=== PATIENT | female | born 1940 | race American Indian/Alaskan Native ===

== ENCOUNTER 2016-10-25 18:06 | Inpatient (IN) | payer MEDICARE, OTHER ==
--- NOTE | 2016-10-25 18:22 | ED PDOC ---
HPI: SOB/CHF/COPD Time Seen by Provider: 10/25/16 18:22 Chief Complaint (Nursing): Respiratory Distress Chief Complaint (Provider): SOB History Per: Patient, Family Additional Complaint(s): 76-year-old female presents to emergency department with cough, shortness of breath and swelling of legs for one week. Patient was seen today by primary doctor and was advised to come to ED for further evaluation. Family members at bedside states the patient has been complaining of shortness of breath and leg swelling for a few days now. No associated fever or chills. Prior to a few days ago patient had mild chronic swelling to lower legs but it has been much worse over the past few days. No recent travel, no known sick contacts. Past Medical History Reviewed: Historical Data, Nursing Documentation, Vital Signs Vital Signs: Last Vital Signs Temp 98.4 F 10/25/16 18:10 Pulse 64 10/25/16 18:10 Resp 12 10/25/16 18:43 BP 138/71 10/25/16 18:10 Pulse Ox 95 10/25/16 18:56 - Medical History PMH: Alzheimer's Disease, CAD, Dementia, HTN, Hypercholesterolemia, Hypothyroidism - Surgical History Other surgeries: repair of brain aneurysm - Family History Family History: States: No Known Family Hx - Living Arrangements Living Arrangements: With Family - Social History Current smoker - smoking cessation education provided: No Alcohol: None Drugs: Denies - Home Medications Home Medications: Ambulatory Orders Medication Instructions Recorded Atenolol [Tenormin] 50 mg PO DAILY 03/18/14 Atorvastatin Calcium [Lipitor] 10 mg PO HS 03/18/14 Donepezil Hydrochloride [Aricept] 5 mg PO HS 03/18/14 Aspirin [Aspirin Chewable] 81 mg PO DAILY 10/25/16 Cholecalciferol (Vitamin D3) 1,000 units PO DAILY 10/25/16 [Vitamin D3] Cyanocobalamin [Vitamin B12] 1 tab PO DAILY 10/25/16 Levothyroxine Sodium [Synthroid] 100 mcg PO DAILY 10/25/16 QUEtiapine [SEROquel] 50 mg PO HS 10/25/16 amLODIPine [Norvasc] 5 mg PO DAILY 10/25/16 traZODone [Desyrel] 200 mg PO HS 10/25/16 - Allergies Allergies/Adverse Reactions: Allergies Allergy/AdvReac Type Severity Reaction Status Date / Time No Known Allergies Allergy Verified 11/19/14 07:32 Wells Criteria for PE - Wells Criteria for Pulmonary Embolism Clinical Signs and Symptoms of DVT: Yes P.E is #1 Diagnosis, or Equally Likely: Yes Heart Rate >100: No Immobilization at least 3 days;Surgery previous 4 weeks: No Previous, objectively diagnosed PE or DVT: No Hemoptysis: No Malignancy w/treatment within 6 months, or palliative: No Total Score: 4 Review of Systems ROS Statement: Except As Marked, All Systems Reviewed And Found Negative Constitutional: Negative for: Fever, Chills Cardiovascular: Positive for: Chest Pain, Edema. Negative for: Palpitations, Light Headedness Respiratory: Positive for: Cough, Shortness of Breath, SOB with Exertion Gastrointestinal: Negative for: Nausea, Vomiting, Abdominal Pain Genitourinary Female: Positive for: Frequency. Negative for: Dysuria Neurological: Negative for: Headache, Dizziness Physical Exam - Reviewed Nursing Documentation Reviewed: Yes Vital Signs Reviewed: Yes - Physical Exam Appears: Positive for: Well, Non-toxic, No Acute Distress Head Exam: Positive for: ATRAUMATIC, NORMAL INSPECTION Skin: Negative for: Rash Eye Exam: Positive for: Normal appearance, EOMI, PERRL Neck: Positive for: Normal Cardiovascular/Chest: Positive for: Regular Rate, Rhythm Respiratory: Positive for: Rales, Rhonchi, Respiratory Distress (mild). Negative for: Wheezing Gastrointestinal/Abdominal: Positive for: Soft. Negative for: Tenderness, Distended, Guarding, Rebound Extremity: Positive for: Pedal Edema (2 + pitting edema to both legs up to knees ) Neurologic/Psych: Positive for: Alert, Oriented - ECG O2 Sat by Pulse Oximetry: 95 Pulse Ox Interpretation: Normal Medical Decision Making Medical Decision Makin76 year old female with shortness of breath and edema Plan: EKG CXR CBC CMP Trop BNP D-dimer Duplex bilateral lower extremities Disposition - Clinical Impression Clinical Impression: Shortness of breath - Patient ED Disposition Is Patient to be Admitted: Transfer of Care - Disposition Disposition: Transfer of Care Disposition Time: 20:00 Condition: FAIR Forms: [employer] (Setswana) Patient Signed Over To: Zeinab Roberts Handoff Comments: Signed out pending diagnostic testing results and final dispo
[2016-10-25 20:32] LABS: BASO # 0.1 K/uL (0.0-0.2); BASO % 0.9 % (0.0-2.0); EOS # 0.2 K/uL (0.0-0.7); EOS % 3.7 % (0.0-4.0); HEMOGLOBIN 11.1 g/dL (12.0-16.0); LYMPH # 1.2 K/uL (1.0-4.3); LYMPH % 20.5 % (20.0-40.0); MEAN CELL VOLUME 82.6 fl (81.0-99.0); MEAN CORPUSCULAR HEMOGLOBIN 25.8 pg (27.0-31.0); MEAN CORPUSCULAR HGB CONC 31.2 g/dL (33.0-37.0); MONO # 0.7 K/uL (0.0-0.8); MONO % 11.6 % (0.0-10.0); NEUT # 3.8 K/uL (1.8-7.0); NEUT % 63.3 % (50.0-75.0); NRBC % 0.2 % (0.0-0.0); RBC 4.32 Mil/uL (3.80-5.20); RED CELL DISTRIBUTION WIDTH 15.8 % (11.5-14.5)
[2016-10-25 20:38] LABS: ALB/GLOB RATIO 1.1 (1.0-2.1); ALBUMIN 3.7 g/dL (3.5-5.0); ALT/SGPT 37 U/L (9-52); AST/SGOT 22 U/L (14-36); BLOOD UREA NITROGEN 28 mg/dl (7-17); CALCIUM 9.3 mg/dL (8.4-10.2); GFR AFRICAN-AMERICAN 31; GFR NON-AFRICAN AMERICAN 26
--- NOTE | 2016-10-25 20:46 | US ---
EXAM: US Duplex Bilateral Lower Extremity Veins CLINICAL HISTORY: 76 years old, female; Pain and signs and symptoms; Swelling of limb; Lower extremity, bilateral; Leg, lower; Additional info: Swelling and pain to both legs TECHNIQUE: Real-time ultrasound scan of the veins of the bilateral lower extremities with color Doppler flow, spectral waveform analysis and compression. EXAM DATE/TIME: 10/25/2016 6:52 PM COMPARISON: No relevant prior studies available. FINDINGS: Normal-appearing compressibility, flow and augmentation response are seen within the common femoral, femoral and popliteal veins bilaterally. There is normal flow and augmentation response in the posterior tibial veins bilaterally. IMPRESSION: No evidence of deep venous thrombosis in either leg.
[2016-10-25 20:48] LABS: B-TYPE NATRIURETIC PEPTIDE 376 pg/ml (0-900)
[2016-10-25] MEDS ORDERED: Albuterol-Ipratrop 3 mg / 0.5 (3 ml) UD ONE (21:33)
[2016-10-25] MEDS ORDERED: Albuterol-Ipratrop 3 mg / 0.5 (3 ml) UD INH STA (21:34)
--- NOTE | 2016-10-25 21:42 | ED PDOC ---
- Laboratory Results Result Diagrams: 10/25/16 20:06 10/25/16 20:06 - ECG O2 Sat by Pulse Oximetry: 95 Medical Decision Making Medical Decision Making: Elevated D-dimer. Pt with elevated BUN and creatinine. V/Q scan ordered for tomorrow. Discussed admission with Michele Valdez NP. Disposition - Clinical Impression Clinical Impression: Shortness of breath, Pneumonia - POA Present On Arrival: None - Disposition Disposition: Hospitalized as Observation Patient Disposition Time: 22:04 Condition: STABLE Wells Criteria for PE - Wells Criteria for Pulmonary Embolism Clinical Signs and Symptoms of DVT: No P.E is #1 Diagnosis, or Equally Likely: No Heart Rate >100: No Immobilization at least 3 days;Surgery previous 4 weeks: No Previous, objectively diagnosed PE or DVT: No Hemoptysis: No Malignancy w/treatment within 6 months, or palliative: No Total Score: 0 Curb-65 Severity Score - CURB-65 Severity Score Confusion: No Bun >19mg/dl (>7mmol/L): Yes Respiratory Rate greater than/equal to 30: No Systolic BP <90 or Diastolic BP less than/equal 60mmHg: No Age >64: Yes Curb-65 Score: 2 Percentage 30-day mortality: 6.8%
[2016-10-25] MEDS ORDERED: cefTRIAXone (Rocephin) 1 gm Inj ONE (22:04)
[2016-10-25] MEDS ORDERED: Azithromycin 500 MG IV IVPB ONE (23:26)
[2016-10-26 07:03] LABS: HEMOGLOBIN 10.8 g/dL (12.0-16.0); MEAN CELL VOLUME 82.4 fl (81.0-99.0); MEAN CORPUSCULAR HEMOGLOBIN 25.3 pg (27.0-31.0); MEAN CORPUSCULAR HGB CONC 30.6 g/dL (33.0-37.0); RBC 4.28 Mil/uL (3.80-5.20); RED CELL DISTRIBUTION WIDTH 15.6 % (11.5-14.5); WHITE BLOOD COUNT 5.6 K/uL (4.8-10.8)
[2016-10-26 07:37] LABS: ALB/GLOB RATIO 1.1 (1.0-2.1); ALBUMIN 3.3 g/dL (3.5-5.0); CALCIUM 8.8 mg/dL (8.4-10.2)
[2016-10-26] MEDS ORDERED: Potassium Chloride 20 mEq ER Tab PO ONE (08:22)
--- NOTE | 2016-10-26 08:32 | CP.PCM.HP ---
History of Present Illness - History of Present Illness History of Present Illness: pt admitted for pna and positive ddimer. pt had dyspnea at [facility] [place] office which prompted er visit. bun/cr elevated which dis allowed ct chest. no complaints/dyspnea at present. scattered rhonchi/wheezing. pt is confused w/ h/o dementia bw and imaging noted Present on Admission - Present on Admission Any Indicators Present on Admission: No Review of Systems - Respiratory Respiratory: As Per HPI, Cough, Dyspnea, Wheezing, Chest Congestion Past Patient History - Infectious Disease Hx of Infectious Diseases: None - Tetanus Immunizations Tetanus Immunization: Unknown - Past Medical History & Family History Past Medical History?: Yes - Past Social History Smoking Status: Never Smoked - CARDIAC Hx Cardiac Disorders: Yes Hx Hypertension: Yes - PULMONARY Hx Respiratory Disorders: No - NEUROLOGICAL Hx Neurological Disorder: Yes Hx Dementia: Yes - HEENT Hx HEENT Problems: No - RENAL Hx Chronic Kidney Disease: No - ENDOCRINE/METABOLIC Hx Endocrine Disorders: Yes Hx Hypothyroidism: Yes - HEMATOLOGICAL/ONCOLOGICAL Hx Blood Disorders: Yes Hx Cancer: Yes (Breast Cancer) - INTEGUMENTARY Hx Dermatological Problems: No - MUSCULOSKELETAL/RHEUMATOLOGICAL Hx Musculoskeletal Disorders: No Hx Falls: No - GASTROINTESTINAL Hx Gastrointestinal Disorders: No - GENITOURINARY/GYNECOLOGICAL Hx Genitourinary Disorders: No - PSYCHIATRIC Hx Psychophysiologic Disorder: No Hx Substance Use: No - SURGICAL HISTORY Hx Surgeries: Yes Hx Breast Biopsy: Yes Hx Mastectomy: Yes (Lumpectomy; 2012 two surgeries L breast) Other/Comment: 1992 Brain aneurysm surgery. 2012 Left breast Ca= Surgery x2 - ANESTHESIA Hx Anesthesia: Yes Hx Anesthesia Reactions: No Hx Malignant Hyperthermia: No Meds Allergies/Adverse Reactions: Allergies Allergy/AdvReac Type Severity Reaction Status Date / Time No Known Allergies Allergy Verified 11/19/14 07:32 Physical Exam - Constitutional Appears: Well, Non-toxic, No Acute Distress - Head Exam Head Exam: ATRAUMATIC, NORMAL INSPECTION, NORMOCEPHALIC - Eye Exam Eye Exam: EOMI, Normal appearance, PERRL Pupil Exam: NORMAL ACCOMODATION, PERRL - ENT Exam ENT Exam: Mucous Membranes Moist, Normal Exam - Neck Exam Neck exam: Positive for: Normal Inspection - Respiratory Exam Respiratory Exam: Rhonchi, Wheezes, NORMAL BREATHING PATTERN - Cardiovascular Exam Cardiovascular Exam: REGULAR RHYTHM, RRR, +S1, +S2 - GI/Abdominal Exam GI & Abdominal Exam: Normal Bowel Sounds, Soft. absent: Tenderness - Extremities Exam Extremities exam: Positive for: normal inspection - Back Exam Back exam: NORMAL INSPECTION - Neurological Exam Neurological exam: Alert, CN II-XII Intact, Normal Gait, Oriented x3, Reflexes Normal - Psychiatric Exam Psychiatric exam: Normal Affect, Normal Mood - Skin Skin Exam: Dry, Intact, Normal Color, Warm Results - Vital Signs Recent Vital Signs: Last Vital Signs Temp 98.3 F 10/26/16 08:13 Pulse 59 L 10/26/16 08:13 Resp 18 10/26/16 08:13 BP 145/60 10/26/16 08:13 Pulse Ox 97 10/26/16 08:13 - Labs Result Diagrams: 10/26/16 06:30 10/26/16 06:30 Labs: Laboratory Results - last 24 hr 10/26/16 10/26/16 06:30 06:30 WBC 5.6 RBC 4.28 Hgb 10.8 L Hct 35.2 MCV 82.4 MCH 25.3 L MCHC 30.6 L RDW 15.6 H Plt Count 162 Sodium 144 Potassium 3.2 L Chloride 108 H Carbon Dioxide 27 Anion Gap 12 BUN 28 H Creatinine 1.8 H Est GFR ( Amer) 33 Est GFR (Non-Af Amer) 28 Random Glucose 90 Calcium 8.8 Total Bilirubin 0.3 AST 19 ALT 30 Alkaline Phosphatase 66 Total Protein 6.3 Albumin 3.3 L Globulin 3.0 Albumin/Globulin Ratio 1.1 Assessment & Plan (1) Positive D dimer Assessment and Plan: vq scan today lovenox ppx dose for now Status: Acute (2) DVT prophylaxis Assessment and Plan: scd and aehose lovenox Status: Acute (3) Pneumonia Assessment and Plan: rocephin/zithromax duoneb Status: Acute (4) Acute kidney injury Assessment and Plan: ivf monitor Status: Acute (5) Dehydration Assessment and Plan: ivf monitor bw Status: Acute Decision To Admit - Pt Status Changed To: Hospital Disposition Of: Inpatient - Admit Certification Admit to Inpatient:: After my assessment, the patient will require hospitalization for at least two midnights. This is because of the severity of symptoms shown, intensity of services needed, and/or the medical risk in this patient being treated as an outpatient. - . Bed Request Type: Telemetry Admitting Physician: Gonzales Garcia
--- NOTE | 2016-10-26 08:49 | RAD ---
HISTORY: shortness of breath, cough COMPARISON: Comparison is made to 11/19/2014 TECHNIQUE: Chest PA and lateral FINDINGS: LUNGS: Small opacity seen at the medial aspect of the right lower lung may represent pneumonia. PLEURA: No significant pleural effusion identified. No pneumothorax apparent. CARDIOVASCULAR: Normal. OSSEOUS STRUCTURES: Diffuse osteopenia. Mild compression deformity seen at the lower thoracic spine. VISUALIZED UPPER ABDOMEN: Normal. OTHER FINDINGS: None. IMPRESSION: Small opacity at the medial aspect of the right lower lung may represent pneumonia.
[2016-10-26] MEDS ORDERED: Azithromycin 500 MG in Sodium Chloride 0.9% 250 ML IVPB SCH (09:00)
[2016-10-26] MEDS ORDERED: ATENOLOL 100 MG TAB PO SCH (09:00)
[2016-10-26] MEDS ORDERED: CYANOCOBALAMIN 500 MCG TAB PO SCH (09:00)
[2016-10-26] MEDS: Enoxaparin 40 mg Syringe SC SCH (09:57)
--- NOTE | 2016-10-26 10:19 | CARD ---
APPROVED REPORT EKG Measurement Heart [id number] <Conclusion> Normal sinus rhythm Possible septal infarct, age undetermined Abnormal ECG
[2016-10-26] MEDS: Promethazine DM 6.25 mg-15 mg/5 ml Syrup PO PRN ×2 (11:11→19:59)
[2016-10-26] MEDS: Levothyroxine 100 MCG TAB PO SCH (11:12)
[2016-10-26] MEDS: Albuterol-Ipratrop 3 mg / 0.5 (3 ml) UD INH PRN ×2 (11:24→16:39)
--- NOTE | 2016-10-26 13:37 | NM ---
COMPARISON: October 25, 2016. Two-view chest October 25, 2016. Duplex venous sonography lower extremity bilateral. TECHNIQUE: 43.6 mCi technetium 99-m DTPA aerosol. 5.34 mCI technetium 99-m MAA administered intravenously. FINDINGS: VENTILATION COMPONENT: Mildly heterogeneous. Retention of radionuclide in the central tracheobronchial tree. PERFUSION COMPONENT: Heterogeneous distribution of radionuclide. No geographic, segmental, lobar abnormalities apparent on the present examination. IMPRESSION: Low probability ventilation perfusion scan for pulmonary embolism.
[2016-10-26] MEDS: Azithromycin 500 MG in Sodium Chloride 0.9% 250 ML IVPB SCH (22:13)
--- NOTE | 2016-10-27 08:10 | CP.PCM.PN ---
Subjective - Date & Time of Evaluation Date of Evaluation: 10/27/16 Time of Evaluation: 08:08 - Subjective Subjective: pt doing well in bed. no f/c, n/v/d. per rn had incr confusion after daughter left yesterday. vq negative for pe. spo2 93-94 off o2. pt on 1:1 for incr confusion. Objective - Vital Signs/Intake and Output Vital Signs (last 24 hours): Temp Pulse Resp BP Pulse Ox 98.2 F 72 20 145/69 93 L 10/27/16 05:12 10/27/16 05:12 10/27/16 05:12 10/27/16 05:12 10/27/16 05:12 - Medications Medications: Current Medications Albuterol/Ipratropium (Duoneb 3 Mg/0.5 Mg (3 Ml) Ud) 3 ml INH RQ4 PRN PRN Reason: Shortness of Breath Last Admin: 10/26/16 16:39 Dose: 3 ml Amlodipine Besylate (Norvasc) 5 mg PO DAILY [facility] Last Admin: 10/26/16 09:56 Dose: 5 mg Aspirin (Aspirin Chewable) 81 mg PO DAILY [facility] Last Admin: 10/26/16 09:56 Dose: 81 mg Atenolol (Tenormin) 50 mg PO DAILY [facility] Atorvastatin Calcium (Lipitor) 10 mg PO HS [facility] Last Admin: 10/26/16 22:16 Dose: 10 mg Cholecalciferol (Vitamin D) 1,000 iu PO DAILY [facility] Last Admin: 10/26/16 11:12 Dose: 1,000 iu Cyanocobalamin (Vitamin B12 1000 Mcg Tab) 1,000 mcg PO DAILY [facility] Donepezil HCl (Aricept) 5 mg PO HS [facility] Last Admin: 10/26/16 22:11 Dose: 5 mg Enoxaparin Sodium (Lovenox) 40 mg SC DAILY [facility] PRN Reason: Protocol Last Admin: 10/26/16 09:57 Dose: 40 mg Ceftriaxone Sodium 1 gm/ (Sodium Chloride) 100 mls @ 100 mls/hr IVPB DAILY@ 2200 [facility] Last Admin: 10/26/16 22:12 Dose: 100 mls/hr Azithromycin 500 mg/ Sodium (Chloride) 250 mls @ 250 mls/hr IVPB DAILY@2200 [facility] Last Admin: 10/26/16 22:13 Dose: 250 mls/hr Levothyroxine Sodium (Synthroid) 100 mcg PO 0900 [facility] Last Admin: 10/26/16 11:12 Dose: 100 mcg Promethazine HCl/Dextromethorphan (Phenergan Dm Syrup) 5 ml PO Q6 PRN PRN Reason: Cough Last Admin: 10/26/16 19:59 Dose: 5 ml Quetiapine Fumarate (Seroquel) 50 mg PO [facility] Last Admin: 10/26/16 22:13 Dose: 50 mg Trazodone HCl (Desyrel) 200 mg PO [facility] Last Admin: 10/26/16 22:11 Dose: 200 mg - Labs Labs: 10/26/16 06:30 10/26/16 06:30 - Constitutional Appears: Well, Non-toxic, No Acute Distress - Head Exam Head Exam: ATRAUMATIC, NORMAL INSPECTION, NORMOCEPHALIC - Eye Exam Eye Exam: EOMI, Normal appearance, PERRL Pupil Exam: NORMAL ACCOMODATION, PERRL - ENT Exam ENT Exam: Mucous Membranes Moist, Normal Exam - Neck Exam Neck Exam: Full ROM, Normal Inspection. absent: Lymphadenopathy - Respiratory Exam Respiratory Exam: Rhonchi, Wheezes, NORMAL BREATHING PATTERN - Cardiovascular Exam Cardiovascular Exam: REGULAR RHYTHM, RRR, +S1, +S2. absent: Murmur - GI/Abdominal Exam GI & Abdominal Exam: Soft, Normal Bowel Sounds. absent: Tenderness - Extremities Exam Extremities Exam: Full ROM, Normal Capillary Refill, Normal Inspection. absent : Joint Swelling, Pedal Edema - Back Exam Back Exam: NORMAL INSPECTION - Neurological Exam Neurological Exam: Alert, Awake, CN II-XII Intact, Normal Gait, Oriented x3 - Psychiatric Exam Psychiatric exam: Normal Affect, Normal Mood - Skin Skin Exam: Dry, Intact, Normal Color, Warm Assessment and Plan (1) Positive D dimer Status: Acute (2) DVT prophylaxis Status: Acute (3) Pneumonia Status: Acute (4) Acute kidney injury Status: Acute (5) Dehydration Status: Acute - Assessment and Plan (Free Text) Assessment: (1) Positive D dimer Assessment and Plan: vq scan today-negative lovenox cont ppx dose Status: Acute (2) DVT prophylaxis Assessment and Plan: scd and aehose lovenox Status: Acute (3) Pneumonia Assessment and Plan: rocephin/zithromax duoneb phenergen o2 prn Status: Acute (4) Acute kidney injury Assessment and Plan: ivf monitor Status: Acute (5) Dehydration Assessment and Plan: ivf monitor bw Status: Acute 6-confusion w/ h/o dementia. cont meds, 1:1 safety pending am labs
[2016-10-27 08:37] LABS: BASO % 0.8 % (0.0-2.0); EOS # 0.2 K/uL (0.0-0.7); EOS % 3.7 % (0.0-4.0); HEMOGLOBIN 10.1 g/dL (12.0-16.0); LYMPH # 1.3 K/uL (1.0-4.3); LYMPH % 27.7 % (20.0-40.0); MEAN CELL VOLUME 81.8 fl (81.0-99.0); MEAN CORPUSCULAR HEMOGLOBIN 25.7 pg (27.0-31.0); MEAN CORPUSCULAR HGB CONC 31.4 g/dL (33.0-37.0); MEAN PLATELET VOLUME 8.1 fl (7.2-11.7); MONO # 0.5 K/uL (0.0-0.8); MONO % 10.6 % (0.0-10.0); NEUT # 2.6 K/uL (1.8-7.0); NEUT % 57.2 % (50.0-75.0); NRBC % 0.1 % (0.0-0.0); RBC 3.91 Mil/uL (3.80-5.20); RED CELL DISTRIBUTION WIDTH 15.8 % (11.5-14.5); WHITE BLOOD COUNT 4.5 K/uL (4.8-10.8)
[2016-10-27 08:52] LABS: ALBUMIN 3.1 g/dL (3.5-5.0); CALCIUM 8.5 mg/dL (8.4-10.2)
[2016-10-27] MEDS: Enoxaparin 40 mg Syringe SC SCH (09:51)
[2016-10-27] MEDS: Levothyroxine 100 MCG TAB PO SCH (09:53)
[2016-10-27] MEDS: Promethazine DM 6.25 mg-15 mg/5 ml Syrup PO PRN ×2 (10:06→21:35)
[2016-10-27] MEDS: Azithromycin 500 MG in Sodium Chloride 0.9% 250 ML IVPB SCH (22:39)
[2016-10-28] MEDS: Azithromycin 500 MG in Sodium Chloride 0.9% 250 ML IVPB SCH (01:35)
[2016-10-28 07:57] LABS: ALBUMIN 3.2 g/dL (3.5-5.0)
--- NOTE | 2016-10-28 09:17 | CP.PCM.PN ---
Subjective - Date & Time of Evaluation Date of Evaluation: 10/28/16 Time of Evaluation: : - Subjective Subjective: pt in bed w/ 1:1 for safety. no distress/complaints. no f/c, n/v/d. bw noted. bun/cr trending down. k normalized. still w/ wheezing, good air entry. did not get duoneb yet this am. Objective - Vital Signs/Intake and Output Vital Signs (last 24 hours): Temp Pulse Resp BP Pulse Ox 98.8 F 63 18 105/74 97 10/28/16 08:18 10/28/16 08:18 10/28/16 08:18 10/28/16 08:18 10/28/16 08:18 - Medications Medications: Current Medications Albuterol/Ipratropium (Duoneb 3 Mg/0.5 Mg (3 Ml) Ud) 3 ml INH RQ4 PRN PRN Reason: Shortness of Breath Last Admin: 10/26/16 16:39 Dose: 3 ml Amlodipine Besylate (Norvasc) 5 mg PO DAILY [facility] Last Admin: 10/27/16 09:52 Dose: 5 mg Aspirin (Aspirin Chewable) 81 mg PO DAILY [facility] Last Admin: 10/27/16 09:51 Dose: 81 mg Atenolol (Tenormin) 50 mg PO DAILY [facility] Last Admin: 10/27/16 09:53 Dose: 50 mg Atorvastatin Calcium (Lipitor) 10 mg PO HS [facility] Last Admin: 10/27/16 21:14 Dose: 10 mg Azithromycin (Zithromax) 250 mg PO DAILY [facility] Stop: 10/31/16 09:01 Cholecalciferol (Vitamin D) 1,000 iu PO DAILY [facility] Last Admin: 10/27/16 09:53 Dose: 1,000 iu Cyanocobalamin (Vitamin B12 1000 Mcg Tab) 1,000 mcg PO DAILY [facility] Last Admin: 10/27/16 09:54 Dose: 1,000 mcg Donepezil HCl (Aricept) 5 mg PO HS [facility] Last Admin: 10/27/16 21:14 Dose: 5 mg Enoxaparin Sodium (Lovenox) 40 mg SC DAILY [facility] PRN Reason: Protocol Last Admin: 10/27/16 09:51 Dose: 40 mg Ceftriaxone Sodium 1 gm/ (Sodium Chloride) 100 mls @ 100 mls/hr IVPB DAILY@ 2200 [facility] Last Admin: 10/27/16 21:14 Dose: 100 mls/hr Levothyroxine Sodium (Synthroid) 100 mcg PO 0900 [facility] Last Admin: 10/27/16 09:53 Dose: 100 mcg Promethazine HCl/Dextromethorphan (Phenergan Dm Syrup) 5 ml PO Q6 PRN PRN Reason: Cough Last Admin: 10/27/16 21:35 Dose: 5 ml Quetiapine Fumarate (Seroquel) 50 mg PO [facility] Last Admin: 10/27/16 21:14 Dose: 50 mg Trazodone HCl (Desyrel) 200 mg PO [facility] Last Admin: 10/27/16 21:13 Dose: 200 mg - Labs Labs: 10/27/16 08:00 10/28/16 05:30 - Constitutional Appears: Well, Non-toxic, No Acute Distress - Head Exam Head Exam: ATRAUMATIC, NORMAL INSPECTION, NORMOCEPHALIC - Eye Exam Eye Exam: EOMI, Normal appearance, PERRL Pupil Exam: NORMAL ACCOMODATION, PERRL - ENT Exam ENT Exam: Mucous Membranes Moist, Normal Exam - Neck Exam Neck Exam: Full ROM, Normal Inspection. absent: Lymphadenopathy - Respiratory Exam Respiratory Exam: Wheezes, NORMAL BREATHING PATTERN Additional comments: good air entry - Cardiovascular Exam Cardiovascular Exam: REGULAR RHYTHM, RRR, +S1, +S2. absent: Murmur - GI/Abdominal Exam GI & Abdominal Exam: Soft, Normal Bowel Sounds. absent: Tenderness - Extremities Exam Extremities Exam: Full ROM, Normal Capillary Refill, Normal Inspection. absent : Joint Swelling, Pedal Edema - Back Exam Back Exam: NORMAL INSPECTION - Neurological Exam Neurological Exam: Alert, Awake, CN II-XII Intact, Normal Gait - Psychiatric Exam Psychiatric exam: Normal Affect, Normal Mood - Skin Skin Exam: Dry, Intact, Normal Color, Warm Assessment and Plan (1) Positive D dimer Status: Acute (2) DVT prophylaxis Status: Acute (3) Pneumonia Status: Acute (4) Acute kidney injury Status: Acute (5) Dehydration Status: Acute - Assessment and Plan (Free Text) Assessment: (1) Positive D dimer Assessment and Plan: vq scan today-negative lovenox cont ppx dose Status: Acute (2) DVT prophylaxis Assessment and Plan: scd and aehose lovenox Status: Acute (3) Pneumonia Assessment and Plan: rocephin-d/c for lack of iv access, started augmentin/zithromax duoneb phenergen o2 prn Status: Acute (4) Acute kidney injury Assessment and Plan: ivf monitor Status: Acute (5) Dehydration Assessment and Plan: ivf monitor bw Status: Acute 6-confusion w/ h/o dementia. cont meds, 1:1 safety ?? dc today
[2016-10-28] MEDS: Enoxaparin 40 mg Syringe SC SCH (09:34)
[2016-10-28] MEDS: Promethazine DM 6.25 mg-15 mg/5 ml Syrup PO PRN (09:36)
[2016-10-28] MEDS: Levothyroxine 100 MCG TAB PO SCH (09:37)
[2016-10-28 09:54] LABS: BASO % 0.5 % (0.0-2.0); EOS # 0.2 K/uL (0.0-0.7); EOS % 4.4 % (0.0-4.0); HEMOGLOBIN 10.6 g/dL (12.0-16.0); LYMPH # 1.3 K/uL (1.0-4.3); LYMPH % 24.6 % (20.0-40.0); MEAN CELL VOLUME 81.6 fl (81.0-99.0); MEAN CORPUSCULAR HEMOGLOBIN 25.5 pg (27.0-31.0); MEAN CORPUSCULAR HGB CONC 31.3 g/dL (33.0-37.0); MEAN PLATELET VOLUME 8.6 fl (7.2-11.7); MONO # 0.5 K/uL (0.0-0.8); MONO % 8.7 % (0.0-10.0); NEUT # 3.3 K/uL (1.8-7.0); NEUT % 61.8 % (50.0-75.0); NRBC % 0.1 % (0.0-0.0); RBC 4.15 Mil/uL (3.80-5.20); RED CELL DISTRIBUTION WIDTH 15.6 % (11.5-14.5); WHITE BLOOD COUNT 5.4 K/uL (4.8-10.8)
[2016-10-28] MEDS ORDERED: Albuterol-Ipratrop 3 mg / 0.5 (3 ml) UD INH STA (09:59)
[2016-10-28] MEDS: Amoxicillin-Clav 875-125 mg Tab PO SCH ×2 (11:55→22:17)
[2016-10-29 08:03] VITALS: BP 129/68; PULSE 69; RESP 18; TEMP 97.8; O2SAT 96
--- NOTE | 2016-10-29 08:36 | PQF GENQUE ---
This form is a permanent part of the medical record 10/29/16 Michele Valdez APN, Please specify the Type of Pneumonia. Patient with a history of Dementia presents to PMD office with dyspnea and sent to the ER. Noted rhonchi and wheezing with confusion. CXR: Small opacity at the medial aspect of the RLL may represent Pneumonia. Treated with IVAB. Clarification of your documentation is requested to better reflect the severity of illness and intensity of treatment of your patient. PHYSICIAN'S RESPONSE 1. Please specify type of pneumonia in the progress notes: [] Aspiration pneumonia [x] Bacterial (specify organism) unkn, CAP [] Bronchopneumonia (specify organism) [] Interstitial pneumonia [] Organizing pneumonia/BOOP [] Pneumonia with influenza, kellie flu, or H1N1 flu [] RSV pneumonia [] Tuberculosis, pulmonary [] Viral pneumonia [] Other pneumonia (specify organism or type) [] Clinically unable to determine [] Unknown Note: Probable and suspected conditions can be coded as if they exist if still documented at the time of discharge. Please specify the organism causing the pneumonia CAP Note: CAP, HAP, and HCAP indicate where the pneumonia was acquired, not a specific type. Based on your medical judgment of the clinical indicators outlined above please clarify the following: [] Practitioner response [] If unable to determine, please check the box, sign and date. Present On Admission (POA) Indicator: [] Present at the time of admission [] Not present at the time of admission [] Clinically Undetermined In responding to this query, please exercise your independent professional judgment. The fact that a question is asked does not imply that any particular answer is desired or expected. Thank you for your clarification on this documentation. If you have any questions please call:[phone] Medical Records Dept * Thank you, Stephany Box RN CDMP MTDD
[2016-10-29] MEDS: Amoxicillin-Clav 875-125 mg Tab PO SCH (08:53)
[2016-10-29] MEDS: Levothyroxine 100 MCG TAB PO SCH (08:53)
--- NOTE | 2016-10-29 09:06 | CP.PCM.DIS ---
Provider - Provider Date of Admission: 10/25/16 22:56 Attending physician: Gonzales Garcia MD Time Spent in preparation of Discharge (in minutes): 15 Diagnosis - Discharge Diagnosis (1) Positive D dimer Status: Acute (2) DVT prophylaxis Status: Acute (3) Pneumonia Status: Acute (4) Acute kidney injury Status: Acute (5) Dehydration Status: Acute Hospital Course - Lab Results Lab Results: Most Recent Lab Values WBC 5.4 K/uL (4.8-10.8) 10/28/16 05:30 RBC 4.15 Mil/uL (3.80-5.20) 10/28/16 05:30 Hgb 10.6 g/dL (12.0-16.0) L 10/28/16 05:30 Hct 33.9 % (34.0-47.0) L 10/28/16 05:30 MCV 81.6 fl (81.0-99.0) 10/28/16 05:30 MCH 25.5 pg (27.0-31.0) L 10/28/16 05:30 MCHC 31.3 g/dL (33.0-37.0) L 10/28/16 05:30 RDW 15.6 % (11.5-14.5) H 10/28/16 05:30 Plt Count 191 K/uL (130-400) 10/28/16 05:30 MPV 8.6 fl (7.2-11.7) 10/28/16 05:30 Neut % (Auto) 61.8 % (50.0-75.0) 10/28/16 05:30 Lymph % (Auto) 24.6 % (20.0-40.0) 10/28/16 05:30 Cass % (Auto) 8.7 % (0.0-10.0) 10/28/16 05:30 Eos % (Auto) 4.4 % (0.0-4.0) H 10/28/16 05:30 Baso % (Auto) 0.5 % (0.0-2.0) 10/28/16 05:30 Neut # 3.3 K/uL (1.8-7.0) 10/28/16 05:30 Lymph # 1.3 K/uL (1.0-4.3) 10/28/16 05:30 Cass # 0.5 K/uL (0.0-0.8) 10/28/16 05:30 Eos # 0.2 K/uL (0.0-0.7) 10/28/16 05:30 Baso # 0.0 K/uL (0.0-0.2) 10/28/16 05:30 D-Dimer, Quantitative 807 ng/mlDDU (0-230) H 10/25/16 20:06 Sodium 143 mmol/l (132-148) 10/28/16 05:30 Potassium 3.8 MMOL/L (3.6-5.0) 10/28/16 05:30 Chloride 106 mmol/L (98-107) 10/28/16 05:30 Carbon Dioxide 32 mmol/L (22-30) H 10/28/16 05:30 Anion Gap 9 (10-20) L 10/28/16 05:30 BUN 18 mg/dl (7-17) H 10/28/16 05:30 Creatinine 1.4 mg/dL (0.7-1.2) H 10/28/16 05:30 Est GFR ( Amer) 44 10/28/16 05:30 Est GFR (Non-Af Amer) 37 10/28/16 05:30 Random Glucose 89 mg/dL (65-105) 10/28/16 05:30 Calcium 9.0 mg/dL (8.4-10.2) 10/28/16 05:30 Total Bilirubin 0.3 mg/dl (0.2-1.3) 10/28/16 05:30 AST 19 U/L (14-36) 10/28/16 05:30 ALT 34 U/L (9-52) 10/28/16 05:30 Alkaline Phosphatase 76 U/L (38-126) 10/28/16 05:30 Troponin I < 0.0120 ng/mL (0.00-0.120) 10/25/16 20:06 NT-Pro-B Natriuret Pep 376 pg/ml (0-900) 10/25/16 20:06 Total Protein 6.4 G/DL (6.3-8.2) 10/28/16 05:30 Albumin 3.2 g/dL (3.5-5.0) L 10/28/16 05:30 Globulin 3.2 gm/dL (2.2-3.9) 10/28/16 05:30 Albumin/Globulin Ratio 1.0 (1.0-2.1) 10/28/16 05:30 Discharge Exam - Head Exam Head Exam: ATRAUMATIC, NORMAL INSPECTION, NORMOCEPHALIC - Eye Exam Eye Exam: EOMI, Normal appearance, PERRL Pupil Exam: NORMAL ACCOMODATION, PERRL - Respiratory Exam Respiratory Exam: Clear to PA & Lateral, NORMAL BREATHING PATTERN, UNREMARKABLE - Cardiovascular Exam Cardiovascular Exam: REGULAR RHYTHM, RRR, +S1, +S2 - GI/Abdominal Exam GI & Abdominal Exam: Normal Bowel Sounds, Soft, Unremarkable - Extremities Exam Extremities exam: full ROM, normal capillary refill, normal inspection, pedal pulses present - Back Exam Back exam: FULL ROM - Neurological Exam Neurological exam: Alert, Altered, CN II-XII Intact, Normal Gait, Reflexes Normal - Psychiatric Exam Psychiatric exam: Normal Affect, Normal Mood - Skin Skin Exam: Dry, Intact, Normal Color, Warm Discharge Plan - Discharge Medications Prescriptions: Albuterol/Ipratropium [Duoneb 3 mg/0.5 mg (3 ml) UD] 3 ml INH RQ4 PRN #100 unit PRN Reason: Shortness Of Breath Amoxicillin/Clavulanate [Augmentin 875 MG-125 MG] 1 tab PO BID #14 tab Azithromycin [Zithromax] 250 mg PO DAILY #3 tab Nebulizer and Compressor [Easy Air Compressor Nebulizer] 1 each MC Q4H PRN #1 each PRN Reason: dyspnea - Follow Up Plan Condition: STABLE Disposition: HOME/ ROUTINE Instructions: Community Acquired Pneumonia (GEN) Additional Instructions: pt comfortable and cooperative. still confused. ambulatory w/ steady gait. no wheezing/rhonchi for dc today. no f/c, n/v/d final dx-CAP, dementia
== END 2016-10-29 09:30 | disposition home or self-care (01) | DRG 194 ==
LOC: H.ER 18:06 → H.ERHOLD 22:56 → H.TEL 10-26 00:50
PROVIDERS: ADMIT Family Medicine; ATTEND Family Medicine
PROC: 3E0F7GC Introduction of Other Therapeutic Substance into Respiratory Tract, Via Natural or Artificial Opening (ICD-10-PCS; principal; 2016-10-26)
DX: J15.9 Unspecified bacterial pneumonia (principal); N17.9 Acute kidney failure, unspecified; E86.0 Dehydration; J44.0 Chronic obstructive pulmonary disease with (acute) lower respiratory infection; G30.9 Alzheimer's disease, unspecified; F02.80 Dementia in other diseases classified elsewhere, unspecified severity, without behavioral disturbance, psychotic disturbance, mood disturbance, and anxiety; E03.9 Hypothyroidism, unspecified; E78.00 Pure hypercholesterolemia, unspecified; I10 Essential (primary) hypertension; I25.10 Atherosclerotic heart disease of native coronary artery without angina pectoris; Z79.899 Other long term (current) drug therapy; Z85.3 Personal history of malignant neoplasm of breast; Z86.79 Personal history of other diseases of the circulatory system; R60.9 Edema, unspecified

== ENCOUNTER 2017-02-26 16:16 | Emergency (ER) | payer MEDICARE, OTHER ==
[2017-02-26 16:23] VITALS: TEMP 98.7; O2SAT 99
--- NOTE | 2017-02-26 16:55 | ED PDOC ---
HPI: General Adult Time Seen by Provider: 02/26/17 16:38 Chief Complaint (Nursing): Altered Mental Status Chief Complaint (Provider): Wandering streets History Per: Patient, EMS, Family History/Exam Limitations: no limitations Onset/Duration Of Symptoms: Days (today) Additional Complaint(s): Pt. found wandering streets so ems stopped her. Family contacted and were advised to bring pt. to the ED. Pt. has dementia and was home alone today. Pt. has spurts of dementia exacerbations per family and they are managing it with the pcp and at home. Not suicidal or homicidal. No drugs or etoh. Did not fall or injury self. No chest pain, dyspnea, weakness, headaches, dizziness. Past Medical History Reviewed: Nursing Documentation, Vital Signs Vital Signs: Last Vital Signs Temp 98.7 F 02/26/17 16:19 Pulse 63 02/26/17 16:19 Resp 18 02/26/17 16:19 BP 153/106 H 02/26/17 16:19 Pulse Ox 99 02/26/17 16:19 - Medical History PMH: Alzheimer's Disease, CAD, Dementia, HTN, Hypercholesterolemia, Hypothyroidism Denies: HIV, Chronic Kidney Disease Other PMH: aneurysm rupture - Family History Family History: States: Unknown Family Hx - Living Arrangements Living Arrangements: With Family - Home Medications Home Medications: Ambulatory Orders Medication Instructions Recorded Atenolol [Tenormin] 50 mg PO DAILY 03/18/14 Atorvastatin Calcium [Lipitor] 10 mg PO HS 03/18/14 Donepezil Hydrochloride [Aricept] 5 mg PO HS 03/18/14 Aspirin [Aspirin Chewable] 81 mg PO DAILY 10/25/16 Cholecalciferol (Vitamin D3) 1,000 units PO DAILY 10/25/16 [Vitamin D3] Cyanocobalamin [Vitamin B12] 1 tab PO DAILY 10/25/16 Levothyroxine Sodium [Synthroid] 100 mcg PO DAILY 10/25/16 QUEtiapine [SEROquel] 50 mg PO HS 10/25/16 amLODIPine [Norvasc] 5 mg PO DAILY 10/25/16 traZODone [Desyrel] 200 mg PO HS 10/25/16 Albuterol/Ipratropium [Duoneb 3 3 ml INH RQ4 PRN #100 unit 10/27/16 mg/0.5 mg (3 ml) UD] Amoxicillin/Clavulanate [Augmentin 1 tab PO BID #14 tab 10/27/16 875 MG-125 MG] Azithromycin [Zithromax] 250 mg PO DAILY #3 tab 10/27/16 Nebulizer and Compressor [Easy Air 1 each MC Q4H PRN #1 each 10/27/16 Compressor Nebulizer] - Allergies Allergies/Adverse Reactions: Allergies Allergy/AdvReac Type Severity Reaction Status Date / Time No Known Allergies Allergy Verified 11/19/14 07:32 Review of Systems ROS Statement: Except As Marked, All Systems Reviewed And Found Negative Physical Exam - Reviewed Nursing Documentation Reviewed: Yes Vital Signs Reviewed: Yes - Physical Exam Appears: Positive for: Well, Non-toxic, No Acute Distress Head Exam: Positive for: ATRAUMATIC, NORMAL INSPECTION, NORMOCEPHALIC Skin: Positive for: Normal Color, Warm, DRY Eye Exam: Positive for: EOMI, Normal appearance, PERRL ENT: Positive for: Normal ENT Inspection Neck: Positive for: Normal, Painless ROM Cardiovascular/Chest: Positive for: Regular Rate, Rhythm Respiratory: Positive for: CNT, Normal Breath Sounds Gastrointestinal/Abdominal: Positive for: Normal Exam, Bowel Sounds, Soft. Negative for: Tenderness Back: Positive for: Normal Inspection. Negative for: L CVA Tenderness, R CVA Tenderness Extremity: Positive for: Normal ROM. Negative for: Tenderness, Pedal Edema Neurologic/Psych: Positive for: Alert, childcare provider II-XII, Oriented. Negative for: Motor/Sensory Deficits, Facial Droop - ECG O2 Sat by Pulse Oximetry: 99 Pulse Ox Interpretation: Normal - Progress ED Course And Treament: 1656: Stable. AAOx3. Family at bedside. Wish to take mother home and will see their doctor for further eval. Comfortable managing her at home. Pt. ambulating with no issues. Tolerates po. Disposition - Clinical Impression Clinical Impression: Dementia - Patient ED Disposition Is Patient to be Admitted: No Counseled Patient/Family Regarding: Diagnosis, Need For Followup - Disposition Referrals: Gonzales Garcia MD [Staff Provider] - 02/27/17 Disposition: Routine/Home Disposition Time: 16:53 Condition: STABLE Additional Instructions: Return if not better in 3 days. Instructions: Dementia (ED)
[2017-02-26 17:42] VITALS: BP 106/69; PULSE 62; RESP 16
== END 2017-02-26 17:45 | disposition home or self-care (01) ==
LOC: H.ER 16:16
DX: F03.90 Unspecified dementia, unspecified severity, without behavioral disturbance, psychotic disturbance, mood disturbance, and anxiety (principal)